=== PATIENT | female | born 2000 | race Caucasian/White ===

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

== ENCOUNTER 2019-04-12 18:37 | Emergency (ER) | payer SELFPAY ==
--- NOTE | 2019-04-12 19:23 | EDM.PDOC ---
ED HPI GENERAL MEDICAL PROBLEM - General Chief Complaint: Abdominal Pain Stated Complaint: right side pain Time Seen by Provider: 04/12/19 19:10 Source of Information: Reports: Patient, Family History Limitations: Reports: No Limitations - History of Present Illness INITIAL COMMENTS - FREE TEXT/NARRATIVE: Mariaelena comes into [facility] ED with RUQ abdominal pain since 0830 hrs this am, occurring at school after working all night. Pain is nonradiating, burning in character, intermittent, and associated with some nausea but no vomiting. Pain is new, and does not affect voiding or respirations. She has tried no analgesics. There is a positive FMH of stone disease. Right Abdomen Pain Score (Numeric/FACES): 5 - Related Data Allergies Allergy/AdvReac Type Severity Reaction Status Date / Time Sulfa (Sulfonamide Allergy Swelling Verified 04/12/19 19:03 Antibiotics) Home Meds: Home Meds Hydrocodone/Acetaminophen [[place] 5-325 Tablet] 1 - 2 each PO Q4H PRN #16 tablet 10/05/15 [Rx] Escitalopram [Lexapro] 10 mg PO BEDTIME 08/29/17 [History] Past Medical History - Past Health History Medical/Surgical History: Denies Medical/Surgical History Psychiatric History: Reports: Depression - Past Surgical History Other Musculoskeletal Surgeries/Procedures:: TOE SURGERY Social & Family History - Family History Family Medical History: Noncontributory - Caffeine Use Caffeine Use: Reports: Soda ED ROS GENERAL - Review of Systems Review Of Systems: See Below Constitutional: Reports: No Symptoms HEENT: Reports: No Symptoms Respiratory: Reports: No Symptoms Cardiovascular: Reports: No Symptoms Endocrine: Reports: No Symptoms GI/Abdominal: Reports: Abdominal Pain : Reports: Irregular Menses Musculoskeletal: Reports: No Symptoms Skin: Reports: No Symptoms Neurological: Reports: No Symptoms Psychiatric: Reports: No Symptoms Hematologic/Lymphatic: Reports: No Symptoms Immunologic: Reports: No Symptoms ED EXAM, RENAL/ - Physical Exam Exam: See Below Exam Limited By: No Limitations General Appearance: Alert, WD/WN, No Apparent Distress, Anxious Eye Exam: Bilateral Eye: EOMI, Normal Inspection, PERRL Ears: Normal External Exam Nose: Normal Inspection Throat/Mouth: Normal Inspection, Normal Lips, Normal Oropharynx, Normal Voice Head: Atraumatic, Normocephalic Neck: Normal Inspection, Supple, Non-Tender Respiratory/Chest: Lungs Clear, Normal Breath Sounds, Chest Non-Tender Cardiovascular: Normal Peripheral Pulses, Regular Rate, Rhythm, No Murmur, Irregularly Irregular GI/Abdominal: Soft, No Organomegaly, No Distention, No Mass, Tender (mild tenderness RUQ,no guarding, no rash, no CVA tenderness) (Female) Exam: Deferred Rectal (Female) Exam: Deferred Back Exam: Normal Inspection Extremities: Normal Inspection Neurological: Alert, Oriented, CN II-XII Intact, Normal Cognition, Normal Gait, No Motor/Sensory Deficits Psychiatric: Normal Affect, Anxious Skin Exam: Warm, Dry, Intact, Normal Color, No Rash Lymphatic: No Adenopathy Course - Vital Signs Text/Narrative:: Following assessment, screening labs were obtained including CBC, UA, CRP, Lactic a, and BMP all normal or baseline for age. No analgesics were administered. Patient is hungry, and would like to eat. Abdominal pain NOS, and improving. Last Recorded V/S: Last Vital Signs Temp 36.8 C 04/12/19 18:45 Pulse 87 04/12/19 18:45 Resp 18 04/12/19 18:45 BP 116/80 04/12/19 18:45 Pulse Ox 100 04/12/19 18:45 - Orders/Labs/Meds Labs: Laboratory Tests 04/12/19 04/12/19 04/12/19 Range/Units 19:04 19:04 19:20 WBC 7.8 (4.5-12.0) X10-3/uL RBC 4.99 (3.23-5.20) x10(6)uL Hgb 14.7 (11.5-15.5) g/dL Hct 43.6 (30.0-51.3) % MCV 87.4 (80-96) fL MCH 29.5 (27.7-33.6) pg MCHC 33.7 (32.2-35.4) g/dL RDW 12.8 (11.5-15.5) % Plt Count 380 H (125-369) X10(3)uL MPV 7.5 (7.4-10.4) fL Neut % (Auto) 59.8 (46-82) % Lymph % (Auto) 30.4 (13-37) % [place] % (Auto) 8.1 (4-12) % Eos % (Auto) 1 (1.0-5.0) % Baso % (Auto) 1 (0-2) % Neut # (Auto) 4.7 (1.6-8.3) # Lymph # (Auto) 2.4 (0.6-5.0) # [place] # (Auto) 0.6 (0.0-1.3) # Eos # (Auto) 0.1 (0.0-0.8) # Baso # (Auto) 0.0 (0.0-0.2) # Sodium (135-145) mmol/L Potassium (3.5-5.3) mmol/L Chloride (100-110) mmol/L Carbon Dioxide (21-32) mmol/L BUN (7-18) mg/dL Creatinine (0.55-1.02) mg/dL Est Cr Clr Drug Dosing Estimated GFR (MDRD) (>60) BUN/Creatinine Ratio (9-20) Glucose (80-116) mg/dL Lactic Acid (0.4-2.2) mmol/L Calcium (8.2-10.1) mg/dL C-Reactive Protein (0.5-0.9) mg/dL Urine Color Yellow (YELLOW) Urine Appearance Clear (CLEAR) Urine pH 7.0 H (5.0-6.5) Ur Specific [place] 1.015 (1.010-1.025) Urine Protein Negative (NEGATIVE) mg/dL Urine Glucose (UA) Normal (NORMAL) mg/dL Urine Ketones Negative (NEGATIVE) mg/dL Urine Occult Blood Negative (NEGATIVE) Urine Nitrite Negative (NEGATIVE) Urine Bilirubin Negative (NEGATIVE) Urine Urobilinogen Normal (NEGATIVE) mg/dL Ur Leukocyte Esterase Negative (NEGATIVE) Urine RBC 0-5 (0-5) Urine WBC 0-5 (0-5) Ur Squamous Epith Cells Few H (NS,R,O) Urine Bacteria Few H (NS) Urine HCG, Qual Negative (NEGATIVE) 04/12/19 04/12/19 04/12/19 Range/Units 19:20 19:20 19:20 WBC (4.5-12.0) X10-3/uL RBC (3.23-5.20) x10(6)uL Hgb (11.5-15.5) g/dL Hct (30.0-51.3) % MCV (80-96) fL MCH (27.7-33.6) pg MCHC (32.2-35.4) g/dL RDW (11.5-15.5) % Plt Count (125-369) X10(3)uL MPV (7.4-10.4) fL Neut % (Auto) (46-82) % Lymph % (Auto) (13-37) % [place] % (Auto) (4-12) % Eos % (Auto) (1.0-5.0) % Baso % (Auto) (0-2) % Neut # (Auto) (1.6-8.3) # Lymph # (Auto) (0.6-5.0) # [place] # (Auto) (0.0-1.3) # Eos # (Auto) (0.0-0.8) # Baso # (Auto) (0.0-0.2) # Sodium 141 (135-145) mmol/L Potassium 4.0 (3.5-5.3) mmol/L Chloride 105 (100-110) mmol/L Carbon Dioxide 23 (21-32) mmol/L BUN 13 (7-18) mg/dL Creatinine 0.7 (0.55-1.02) mg/dL Est Cr Clr Drug Dosing TNP Estimated GFR (MDRD) > 60 (>60) BUN/Creatinine Ratio 18.6 (9-20) Glucose 94 (80-116) mg/dL Lactic Acid 0.8 (0.4-2.2) mmol/L Calcium 8.9 (8.2-10.1) mg/dL C-Reactive Protein < 0.2 L (0.5-0.9) mg/dL Urine Color (YELLOW) Urine Appearance (CLEAR) Urine pH (5.0-6.5) Ur Specific [place] (1.010-1.025) Urine Protein (NEGATIVE) mg/dL Urine Glucose (UA) (NORMAL) mg/dL Urine Ketones (NEGATIVE) mg/dL Urine Occult Blood (NEGATIVE) Urine Nitrite (NEGATIVE) Urine Bilirubin (NEGATIVE) Urine Urobilinogen (NEGATIVE) mg/dL Ur Leukocyte Esterase (NEGATIVE) Urine RBC (0-5) Urine WBC (0-5) Ur Squamous Epith Cells (NS,R,O) Urine Bacteria (NS) Urine HCG, Qual (NEGATIVE) Departure - Departure Time of Disposition: 20:27 Disposition: Home, Self-Care 01 Condition: Good Clinical Impression: RUQ abdominal pain - Discharge Information *PRESCRIPTION DRUG MONITORING PROGRAM REVIEWED*: Not Applicable *COPY OF PRESCRIPTION DRUG MONITORING REPORT IN PATIENT DRU: Not Applicable Referrals: Mark Lakhani MD [Primary Care Provider] - Forms: ED Department Discharge - Problem List & Annotations (1) RUQ abdominal pain SNOMED Code(s): 480881166 Code(s): R10.11 - RIGHT UPPER QUADRANT PAIN Status: Acute Priority: Medium Current Visit: Yes Annotation/Comment:: I suggested analgesic of choice, diet as tolerated, and activity as tolerated. She may return to the ED if sxs escalate or change. - Problem List Review Problem List Initiated/Reviewed/Updated: Yes - Assessment/Plan Plan: Follow up if sxs persist.
[2019-04-12 23:40] VITALS: BP 117/87; PULSE 72
== END 2019-04-12 20:30 | disposition home or self-care (01) ==
LOC: FB.ED 18:37
DX: R10.11 Right upper quadrant pain (principal); F32.9 Major depressive disorder, single episode, unspecified; Z88.2 Allergy status to sulfonamides; Z79.899 Other long term (current) drug therapy
CPT/HCPCS: 36415; 80048; 81001; 81025; 83605; 85025; 86140; 99283

== ENCOUNTER 2020-06-10 21:23 | Observation (INO) | payer OTHER ==
[2020-06-10] MEDS: Sodium Chloride 0.9% 1,000 ML IV SCH ×3 (21:30→23:13)
[2020-06-10] MEDS ORDERED: Sodium Chloride 0.9% 10 ML Syringe FLUSH PRN (21:32)
[2020-06-10] MEDS ORDERED: Ondansetron 4 MG/2 ML SDV IVPUSH ONE (21:32)
[2020-06-10] MEDS ORDERED: LORazepam 2 MG/ML SDV IVPUSH STA (21:32)
--- NOTE | 2020-06-10 21:46 | EDM.PDOCBH ---
ED HPI GENERAL MEDICAL PROBLEM - General Stated Complaint: OVERDOSE Time Seen by Provider: 06/10/20 21:25 Source of Information: Reports: Patient History Limitations: Reports: No Limitations - History of Present Illness INITIAL COMMENTS - FREE TEXT/NARRATIVE: Patient presented to the ED because of a drug overdose. She took a total of 240 mg of Lexapro( 20 mg tablets X 12). She denies having suicidal and homicidal ideations. She said she took more than what is prescribed because she has been depressed lately. Her main stressors: recent divorce, her family don't talk to her anymore, and she just got evicted from the place where she is staying. Ms Nogueira also cut her left arm with a knife and she sustained many shallow lacerations which doesn't require suturing. - Related Data Allergies Allergy/AdvReac Type Severity Reaction Status Date / Time Sulfa (Sulfonamide Allergy Swelling Verified 04/12/19 19:03 Antibiotics) Home Meds: Home Meds Escitalopram [Lexapro] 10 mg PO BEDTIME 08/29/17 [History] Past Medical History - Past Health History Medical/Surgical History: Denies Medical/Surgical History Psychiatric History: Reports: Depression Other Psychiatric History: concentration - Past Surgical History Other Musculoskeletal Surgeries/Procedures:: TOE SURGERY Social & Family History - Family History Family Medical History: Noncontributory - Caffeine Use Caffeine Use: Reports: Soda ED ROS GENERAL - Review of Systems Review Of Systems: See Below Constitutional: Reports: No Symptoms HEENT: Reports: No Symptoms Respiratory: Reports: No Symptoms Cardiovascular: Reports: Palpitations Endocrine: Reports: No Symptoms GI/Abdominal: Reports: Nausea Musculoskeletal: Reports: No Symptoms Skin: Reports: No Symptoms Neurological: Reports: No Symptoms Psychiatric: Reports: Anxiety, Depression. Denies: Hallucinations, Homicidal Ideation ED EXAM, BEHAVIORAL HEALTH - Physical Exam Exam: See Below Exam Limited By: No Limitations General Appearance: Alert, No Apparent Distress Ears: Normal External Exam, Normal Canal Nose: Normal Inspection, Normal Mucosa Throat/Mouth: Normal Inspection, Normal Lips Head: Atraumatic, Normocephalic Neck: Normal Inspection Respiratory/Chest: No Respiratory Distress, Lungs Clear, Normal Breath Sounds Cardiovascular: Normal Peripheral Pulses, Regular Rate, Rhythm, No Edema GI/Abdominal: Normal Bowel Sounds, Soft, Non-Tender, No Organomegaly Back Exam: Normal Inspection, Full Range of Motion Extremities: Normal Inspection, Normal Range of Motion, Non-Tender Neurological: Alert, Normal Mood/Affect, CN II-XII Intact, Normal Cognition Psychiatric: Alert, Oriented, Depressed Mood, Flat Affect, Poor Eye Contact. No: Suicidal Plan COURSE, BEHAVIORAL HEALTH COMP - Course Vital Signs: Labs/EKG result was discussed with patient Poison control was consulted and patient need to be observed for Prolonged QT, Torsade, Seizure, Hyponatremia, extrapyramidal symptoms and GI symptoms NS 1 L bolus IV x1 Ativan 1 mg IV x1 Zofran 4 mg IV x1 Psych consult in AM Orders, Labs, Meds: Active Orders 24 hr Category Date Time Status Patient Status [ADT] Routine ADT 06/10/20 21:52 Active Cardiac Monitoring [RC] .As Directed Care 06/10/20 21:52 Active EKG Documentation Completion [RC] ASDIRECTED Care 06/10/20 21:36 Active Intake and Output [RC] QSHIFT Care 06/10/20 21:53 Active Oxygen Therapy [RC] PRN Care 06/10/20 21:52 Active Pulse Oximetry [RC] PRN Care 06/10/20 21:54 Active VTE/DVT Education [RC] Per Unit Routine Care 06/10/20 21:52 Active Vital Signs [RC] Q4H Care 06/10/20 21:52 Active Regular Diet [DIET] Diet 06/10/20 Breakfast Ordered DRUG SCREEN, URINE ALERE [URCHEM] Stat Lab 06/10/20 21:32 Ordered HCG QUALITATIVE,URINE [URCHEM] Stat Lab 06/10/20 21:32 Ordered UA W/MICROSCOPIC [URIN] Stat Lab 06/10/20 21:32 Ordered Acetaminophen [TylenoL] Med 06/10/20 21:52 Active 650 mg PO Q4H PRN Ketorolac [Toradol] Med 06/10/20 21:52 Active 30 mg IVPUSH Q6H PRN LORazepam [Ativan] Med 06/10/20 21:52 Active 1 mg IV Q6H PRN Ondansetron [Zofran] Med 06/10/20 21:52 Active 4 mg IV Q4H PRN Sodium Chloride 0.9% [Normal Saline] 1,000 ml Med 06/10/20 21:45 Active IV ASDIRECTED Sodium Chloride 0.9% [Normal Saline] 1,000 ml Med 06/10/20 22:00 Active IV ASDIRECTED Sodium Chloride 0.9% [Saline Flush] Med 06/10/20 21:32 Active 10 ml FLUSH ASDIRECTED PRN Saline Lock Insert [OM.PC] Routine Oth 06/10/20 21:32 Ordered Sequential Compression Device [OM.PC] Per Unit Routine Oth 06/10/20 21:54 Ordered Resuscitation Status Routine Resus Stat 06/10/20 21:52 Ordered EKG 12 Lead [EK] Routine Ther 06/10/20 21:36 Ordered Medication Orders Acetaminophen (Tylenol) 650 mg PO Q4H PRN PRN Reason: Pain (Mild 1-3)/fever Sodium Chloride (Normal Saline) 1,000 mls @ 999 mls/hr IV ASDIRECTED MAGGIE Last Admin: 06/10/20 21:30 Dose: 999 mls/hr Documented by: BRENLOR Sodium Chloride (Normal Saline) 1,000 mls @ 125 mls/hr IV ASDIRECTED [facility] Ketorolac Tromethamine (Toradol) 30 mg IVPUSH Q6H PRN PRN Reason: Pain (moderate 4-6) Lorazepam (Ativan) 1 mg IV Q6H PRN PRN Reason: Nausea/Vomiting Ondansetron HCl (Zofran) 4 mg IV Q4H PRN PRN Reason: Nausea/Vomiting Sodium Chloride (Saline Flush) 10 ml FLUSH ASDIRECTED PRN PRN Reason: Keep Vein Open Laboratory Tests 06/10/20 06/10/20 06/10/20 Range/Units 21:45 21:45 21:45 WBC 9.6 (4.5-12.0) X10-3/uL RBC 4.72 (3.23-5.20) x10(6)uL Hgb 14.5 (11.5-15.5) g/dL Hct 42.3 (30.0-51.3) % MCV 89.7 (80-96) fL MCH 30.7 (27.7-33.6) pg MCHC 34.2 (32.2-35.4) g/dL RDW 12.7 (11.5-15.5) % Plt Count 411 H (125-369) X10(3)uL MPV 7.2 L (7.4-10.4) fL Neut % (Auto) 60.3 (46-82) % Lymph % (Auto) 31.9 (13-37) % Stokes % (Auto) 6.0 (4-12) % Eos % (Auto) 1 (1.0-5.0) % Baso % (Auto) 1 (0-2) % Neut # (Auto) 5.7 (1.6-8.3) # Lymph # (Auto) 3.1 (0.6-5.0) # Stokes # (Auto) 0.6 (0.0-1.3) # Eos # (Auto) 0.1 (0.0-0.8) # Baso # (Auto) 0.1 (0.0-0.2) # Sodium 139 (135-145) mmol/L Potassium 3.7 (3.5-5.3) mmol/L Chloride 105 (100-110) mmol/L Carbon Dioxide 21 (21-32) mmol/L BUN 16 (7-18) mg/dL Creatinine 0.8 (0.55-1.02) mg/dL Est Cr Clr Drug Dosing TNP Estimated GFR (MDRD) > 60 (>60) BUN/Creatinine Ratio 20.0 (9-20) Glucose 94 (80-116) mg/dL Calcium 8.9 (8.6-10.2) mg/dL Total Bilirubin 0.3 (0.1-1.3) mg/dL AST 13 (5-25) IU/L ALT 26 (12-36) U/L Alkaline Phosphatase 63 (56-112) IU/L Total Protein 7.3 (6.0-8.0) g/dL Albumin 3.8 (3.5-5.2) g/dL Globulin 3.5 g/dL Albumin/Globulin Ratio 1.1 TSH, Ultra Sensitive 0.98 (0.36-3.74) IU/mL Salicylates 3.2 (<2.8) mg/dL Acetaminophen < 2 L (<2) ug/mL Ethyl Alcohol < 0.03 (<0.03) % Medications Generic Name Dose Route Start Last Admin Trade Name Freq PRN Reason Stop Dose Admin Acetaminophen 650 mg 06/10/20 21:52 Tylenol PO Q4H PRN Pain (Mild 1-3)/fever Sodium Chloride 1,000 mls @ 999 mls/hr 11/08/20 21:45 06/10/20 21:30 Normal Saline IV 999 mls/hr ASDIRECTED MAGGIE Administration Sodium Chloride 1,000 mls @ 125 mls/hr 06/10/20 22:00 Normal Saline IV ASDIRECTED MAGGIE Ketorolac Tromethamine 30 mg 06/10/20 21:52 Toradol IVPUSH Q6H PRN Pain (moderate 4-6) Lorazepam 1 mg 06/10/20 21:52 Ativan IV Q6H PRN Nausea/Vomiting Ondansetron HCl 4 mg 06/10/20 21:52 Zofran IV Q4H PRN Nausea/Vomiting Sodium Chloride 10 ml 06/10/20 21:32 Saline Flush FLUSH ASDIRECTED PRN Keep Vein Open Discontinued Medications Generic Name Dose Route Start Last Admin Trade Name Freq PRN Reason Stop Dose Admin Lorazepam 1 mg 06/10/20 21:32 06/10/20 22:02 Ativan IVPUSH 06/10/20 21:33 1 mg NOW STA Administration Ondansetron HCl 4 mg 06/10/20 21:32 06/10/20 21:44 Zofran IVPUSH 06/10/20 21:33 4 mg ONETIME ONE Administration Departure - Departure Time of Disposition: 22:40 Disposition: Refer to Observation Condition: Good Clinical Impression: Drug overdose, Anxiety, Depression - Discharge Information - My Orders Last 24 Hours: My Active Orders 06/10/20 Breakfast Regular Diet [DIET] 06/10/20 21:32 DRUG SCREEN, URINE ALERE [URCHEM] Stat HCG QUALITATIVE,URINE [URCHEM] Stat UA W/MICROSCOPIC [URIN] Stat Sodium Chloride 0.9% [Saline Flush] 10 ml FLUSH ASDIRECTED PRN Saline Lock Insert [OM.PC] Routine 06/10/20 21:36 EKG Documentation Completion [RC] ASDIRECTED EKG 12 Lead [EK] Routine 06/10/20 21:45 Sodium Chloride 0.9% [Normal Saline] 1,000 ml IV ASDIRECTED 06/10/20 21:52 Patient Status [ADT] Routine Cardiac Monitoring [RC] .As Directed Oxygen Therapy [RC] PRN VTE/DVT Education [RC] Per Unit Routine Vital Signs [RC] Q4H Acetaminophen [TylenoL] 650 mg PO Q4H PRN Ketorolac [Toradol] 30 mg IVPUSH Q6H PRN LORazepam [Ativan] 1 mg IV Q6H PRN Ondansetron [Zofran] 4 mg IV Q4H PRN Resuscitation Status Routine 06/10/20 21:53 Intake and Output [RC] QSHIFT 06/10/20 21:54 Pulse Oximetry [RC] PRN Sequential Compression Device [OM.PC] Per Unit Routine 06/10/20 22:00 Sodium Chloride 0.9% [Normal Saline] 1,000 ml IV ASDIRECTED - Assessment/Plan Last 24 Hours: My Active Orders 06/10/20 Breakfast Regular Diet [DIET] 06/10/20 21:32 DRUG SCREEN, URINE ALERE [URCHEM] Stat HCG QUALITATIVE,URINE [URCHEM] Stat UA W/MICROSCOPIC [URIN] Stat Sodium Chloride 0.9% [Saline Flush] 10 ml FLUSH ASDIRECTED PRN Saline Lock Insert [OM.PC] Routine 06/10/20 21:36 EKG Documentation Completion [RC] ASDIRECTED EKG 12 Lead [EK] Routine 06/10/20 21:45 Sodium Chloride 0.9% [Normal Saline] 1,000 ml IV ASDIRECTED 06/10/20 21:52 Patient Status [ADT] Routine Cardiac Monitoring [RC] .As Directed Oxygen Therapy [RC] PRN VTE/DVT Education [RC] Per Unit Routine Vital Signs [RC] Q4H Acetaminophen [TylenoL] 650 mg PO Q4H PRN Ketorolac [Toradol] 30 mg IVPUSH Q6H PRN LORazepam [Ativan] 1 mg IV Q6H PRN Ondansetron [Zofran] 4 mg IV Q4H PRN Resuscitation Status Routine 06/10/20 21:53 Intake and Output [RC] QSHIFT 06/10/20 21:54 Pulse Oximetry [RC] PRN Sequential Compression Device [OM.PC] Per Unit Routine 06/10/20 22:00 Sodium Chloride 0.9% [Normal Saline] 1,000 ml IV ASDIRECTED
[2020-06-10] MEDS ORDERED: Acetaminophen 325 MG Tab PO PRN (21:52)
[2020-06-10] MEDS ORDERED: Ketorolac 30 MG/ML SDV IVPUSH PRN (21:52)
[2020-06-10] MEDS ORDERED: LORazepam 2 MG/ML SDV IV PRN (21:52)
[2020-06-10] MEDS ORDERED: Ondansetron 4 MG/2 ML SDV IV PRN (21:52)
[2020-06-10 22:24] LABS: ACETAMINOPHEN < 2 ug/mL (<2)
[2020-06-11] MEDS: Sodium Chloride 0.9% 1,000 ML IV SCH (07:37)
--- NOTE | 2020-06-11 09:28 | HP ---
ADMISSION DATE: 06/10/2020 CHIEF COMPLAINT: Pill ingestion. HISTORY OF PRESENT ILLNESS: Mariaelena is a 19-year-old woman with a history of depression who was admitted through the emergency room last evening after taking a bunch of pills. She states she had been on Lexapro 20 mg daily and she was feeling a lot of emotional pain. She denies trying to kill herself, but thought that this would ease the pain and she took 12 tablets. In addition to that, she has been doing cutting on her left arm. She reports that she has been under a lot of stress in the last month due to divorce and her parents estrangement. PAST MEDICAL HISTORY: Depression. She also has a history of migraines. She also has a history of asthma and a pituitary microadenoma with hyperprolactinemia. She was diagnosed with ADHD as a child. She is status post removal of a bone spur from her right foot in 2014. MEDICATIONS: 1. Lexapro 20 mg daily. 2. Also listed on her chart was: a. Methylphenidate. b. Cryselle control pills. c. Dostinex tablets. d. Albuterol inhaler. But she states her only medicine currently is Lexapro. ALLERGIES: Sulfa, reaction unknown. HABITS: 1/2 pack per day smoker for the past 3 years. No alcohol. 3 servings of Mountain Dew per day. She denies use of other drugs. FAMILY AND SOCIAL HISTORY: The patient has been after 2 days of marriage, but a 5-1/2 year relationship. She says the divorce took place approximately 6 weeks ago. Her ex- lives with her parents and is seeing a new girlfriend. They all apparently have cut off contact with Mariaelena at this time. REVIEW OF SYSTEMS: GENERAL: No seizure, syncope, or recent significant weight change. SKIN: Negative for rash. HEENT: No recent changes in hearing or vision loss. No sore throat or URI. No symptoms of infection. No cough, dyspnea, chest pain, palpitations, abdominal pain, nausea, diarrhea, swelling, or skin rash. EXTREMITIES: She does have scratches on her left arm from cutting. PHYSICAL EXAMINATION: GENERAL: She is alert and currently makes good eye contact. She denies current suicidal ideation and is anxious to go home. VITAL SIGNS: Blood pressure 114/72, pulse 66 regular, respirations 16, O2 saturation 96% on room air, temperature 98.4, weight 169 pounds. SKIN: Anicteric, warm and dry. She has multiple homemade tattoos and multiple scratches on her left forearm, transverse, linear consistent with cutting. HEENT: Pupils are markedly dilated, but equal and reactive. Oropharynx is clear. LUNGS: Clear to the bases. HEART: Regular without murmur or gallop. ABDOMEN: Normal bowel sounds. Soft and nontender. EXTREMITIES: No edema. ASSESSMENT: 1. Pill ingestion. 2. Acute on chronic depression. 3. History of migraines. 4. History of asthma. 5. Possible hyperprolactinemia. PLAN: She is medically stable at this time and she emotionally seems to be not of a suicide risk. We will observe her this morning yet through breakfast and release her later this morning if she appears stable enough. /[id number] INEZ/CATALINO
--- NOTE | 2020-06-11 09:38 | DISCH ---
DISCHARGE DATE: 06/11/2020 PRIMARY FINAL DIAGNOSIS: Pill ingestion. OTHER DIAGNOSES: [id number] depression, asthma, migraine, cigarette smoker. OPERATIONS: None. COMPLICATIONS: None. SUMMARY: Mariaelena is a 19-year-old woman who ingested 12 Lexapro 20 mg capsules to "try and relieve the emotional pain." She had been under lot of stressors with the recent divorce, estrangement from her family, etc. She was admitted, placed on telemetry monitoring, given IV fluid, followed by Poison Control, and several hours ago, was released from concerns by poison Control. She is awake and alert this morning, is anxious for discharge. She normally sees Dr. Fonseca at [facility] and will have followup with her. Medications on discharge, albuterol MDI p.r.n., Tylenol p.r.n. She may also need to get back on antidepressant and we will work through her Dr. Lakhani and Dr. Fonseca for this. /[id number] INEZ/CATALINO
[2020-06-11 10:06] VITALS: BP 120/81; PULSE 81
== END 2020-06-11 09:10 | disposition home or self-care (01) ==
LOC: FB.ED 21:23 → FB.MS 22:25
PROVIDERS: ADMIT Emergency Medicine; ATTEND Family Medicine
DX: T43.221A Poisoning by selective serotonin reuptake inhibitors, accidental (unintentional), initial encounter (principal); F32.9 Major depressive disorder, single episode, unspecified; J45.909 Unspecified asthma, uncomplicated; F17.210 Nicotine dependence, cigarettes, uncomplicated; G43.909 Migraine, unspecified, not intractable, without status migrainosus; Z79.899 Other long term (current) drug therapy; Z88.2 Allergy status to sulfonamides
CPT/HCPCS: 36415; 80050; 80305; 80307; 81001; 81025; 93005; 96374; 96375; 99217; 99219; 99285; G0378; J2060; J2405; J7030; 80053; 84443; 85025

== ENCOUNTER 2022-01-14 22:43 | Emergency (ER) | payer SELFPAY ==
[2022-01-14 23:52] LABS: ESTIMATED GFR 125 mL/min (>60)
[2022-01-15 00:50] VITALS: BP 117/79; PULSE 80
== END 2022-01-15 01:05 | disposition home or self-care (01) ==
LOC: FB.ED 22:43
DX: M94.0 Chondrocostal junction syndrome [Tietze] (principal); Z88.2 Allergy status to sulfonamides; Z72.0 Tobacco use
CPT/HCPCS: 36415; 71045; 80053; 83735; 84484; 85025; 85379; 93005; 93010; 99282; 99285-25

== ENCOUNTER 2022-06-15 17:45 | Emergency (ER) | payer SELFPAY ==
[2022-06-15] MEDS ORDERED: Nitrofurantoin Monohydrate/Macrocrystalline 100 MG Cap PO ONE (17:46)
[2022-06-15] MEDS: Acetaminophen 500 MG Tab PO ONE (18:21)
[2022-06-15 19:41] VITALS: BP 117/66; PULSE 81
== END 2022-06-15 19:40 | disposition home or self-care (01) ==
LOC: FB.ED 17:45
DX: O99.891 Other specified diseases and conditions complicating pregnancy (principal); R10.2 Pelvic and perineal pain; Z72.0 Tobacco use; Z88.2 Allergy status to sulfonamides; Z3A.08 8 weeks gestation of pregnancy
CPT/HCPCS: 36415; 81001; 84702; 85027; 86140; 86900; 86901; 87086; 87088; 87186; 99284; A9270-GY

== ENCOUNTER 2022-08-01 18:18 | Emergency (ER) | payer SELFPAY ==
[2022-08-01 19:34] VITALS: BP 148/58; PULSE 90
== END 2022-08-01 19:32 | disposition home or self-care (01) ==
LOC: FB.ED 18:18
DX: O99.511 Diseases of the respiratory system complicating pregnancy, first trimester (principal); J10.1 Influenza due to other identified influenza virus with other respiratory manifestations; Z88.2 Allergy status to sulfonamides; Z3A.08 8 weeks gestation of pregnancy
CPT/HCPCS: 99283

== ENCOUNTER 2024-12-22 12:24 | Emergency (ER) | payer SELFPAY ==
[2024-12-22 12:53] LABS: BILIRUBIN,URINE NEGATIVE (NEGATIVE); GLUCOSE,URINE NORMAL (NORMAL); KETONES,URINE NEGATIVE (NEGATIVE); LEUKOCYTE ESTERASE,URINE SMALL (NEGATIVE); NITRITE,URINE NEGATIVE (NEGATIVE); OCCULT BLOOD,URINE NEGATIVE (NEGATIVE); PROTEIN,URINE NEGATIVE (NEGATIVE); UROBILINOGEN,URINE NORMAL (NEGATIVE)
[2024-12-22 12:56] LABS: APPEARANCE,URINE CLEAR (CLEAR); COLOR,URINE YELLOW (YELLOW)
[2024-12-22 13:00] LABS: BACTERIA,URINE MODERATE (NS); RBC,URINE NOT SEEN (0-5); SQUAMOUS EPITHELIAL CELLS,UR FEW (NS,R,O); WBC,URINE 0-5 (0-5)
[2024-12-22 13:01] LABS: BASOPHILS PERCENT AUTO 0.5 % (0.2-1.5); EOSINOPHILS ABSOLUTE AUTO 0.2 x10-3/uL (0.0-0.8); EOSINOPHILS PERCENT AUTO 1.9 % (0.6-8.1); HEMOGLOBIN 16.1 g/dL (11.4-15.5); LYMPHOCYTES ABSOLUTE AUTO 2.1 x10-3/uL (1.0-4.4); LYMPHOCYTES PERCENT AUTO 25.9 % (18.4-52.1); MEAN CORPUSCULAR HEMOGLOBIN 30.1 pg (23.9-33.9); MEAN CORPUSCULAR HGB CONC 34.9 g/dL (31.9-34.8); MEAN CORPUSCULAR VOLUME 86.1 fL (76.7-100.5); MEAN PLATELET VOLUME 7.4 fL (7.1-12.4); MONOCYTES ABSOLUTE AUTO 0.5 x10-3/uL (0.3-1.0); MONOCYTES PERCENT AUTO 6.3 % (4.4-15.7); NEUTROPHILS ABSOLUTE AUTO 5.2 x10-3/uL (1.5-6.3); NEUTROPHILS PERCENT AUTO 65.4 % (30.8-76.2); PLATELET COUNT,PLT 307 x10(3)uL (151-488); RED BLOOD CELL COUNT 5.34 x10(6)uL (3.60-5.20); RED CELL DISTRIBUTION WIDTH 13.7 % (12.3-16.5); WHITE BLOOD CELL COUNT,WBC 7.9 x10-3/uL (3.0-10.3)
[2024-12-22 13:03] LABS: BLOOD UREA NITROGEN,BUN 13 mg/dL (7-18); BUN/CREATININE RATIO 16.3 (9-20); CARBON DIOXIDE,CO2 24 mmol/L (21-32); CHLORIDE,CL 106 mmol/L (100-110); CREATININE 0.8 mg/dL (0.55-1.02); EST CRCL DRUG DOSING (CG) 104.54 mL/min; ESTIMATED GFR 105 mL/min (>60); GLUCOSE RANDOM 101 mg/dL (80-116); POTASSIUM,K 4.1 mmol/L (3.5-5.3); SODIUM,NA 138 mmol/L (135-145)
[2024-12-22 13:09] LABS: A/G RATIO 1.2; ALANINE AMINOTRANSFERASE,ALT 48 U/L (12-36); ALKALINE PHOSPHATASE 74 IU/L (56-112); ASPARTATE AMNIOTRANSFERASE,AST 19 IU/L (5-25); BILIRUBIN TOTAL 0.4 mg/dL (0.1-1.3); PROTEIN TOTAL,TP 7.4 g/dL (6.0-8.0)
[2024-12-22 13:31] VITALS: BP 114/79; PULSE 66
== END 2024-12-22 13:31 | disposition home or self-care (01) ==
LOC: FB.ED 12:24
DX: N39.0 Urinary tract infection, site not specified (principal); F17.210 Nicotine dependence, cigarettes, uncomplicated; Z79.899 Other long term (current) drug therapy; Z88.2 Allergy status to sulfonamides
CPT/HCPCS: 36415; 80053; 81001; 81025; 83690; 85025; 87086; 99284